=== PATIENT | male | born 1980 | race Caucasian/White ===

== ENCOUNTER 2024-09-15 13:52 | Emergency (ER) | payer SELFPAY ==
[2024-09-15 13:55] VITALS: BP 172/95; PULSE 60; RESP 16; TEMP 36.6; O2SAT 98; BMI 25.1
[2024-09-15 16:29] VITALS: BP 172/95; PULSE 60; RESP 16; TEMP 36.6; O2SAT 98
--- NOTE | 2024-09-15 16:30 | ED.EXTPRO ---
HPI - Extremity Problem General Chief complaint: Extremity Injury, Upper Stated complaint: Finger stiffness no injury Time Seen by Provider: 09/15/24 16:23 Source: patient Mode of arrival: ambulatory Limitations: no limitations History of Present Illness ED Provider: Dr. Kristen Colbert HPI Narrative: Patient comes to the emergency room complaining of being unable to make a full fist with his left hand. According to the patient, about a month ago he noticed that he has difficulty making a full fist and also flexing all the fingers. Patient states that sometimes he sees a cyst on the dorsum of his hand and then goes away. However, today, patient is able to make a full fist, flexing and extending all fingers, and the cyst isn't present. Patient denies any pain. Patient denies any trauma. Related Data Allergies Allergy/AdvReac Type Severity Reaction Status Date / Time No Known Allergies Allergy Verified 09/15/24 13:56 Review of Systems Review of Systems: Constitutional : No Weight loss, No Fever, No Chills, No Night Sweats, No Fatigue, No Malaise ENT/Mouth : No Hearing loss, No Ear Pain, No Nasal Congestion, No Sinus Pain, No Hoarseness, No sore throat, No Rhinorrhea, No Swallowing Difficulty Eyes: No Eye Pain, No Swelling, No Redness, No Foreign Body, No Discharge, No Vision Changes Cardiovascular : No Chest Pain, No SOB, No Dyspnea on Exertion, No Orthopnea, No Edema, No Palpitations Respiratory : No Cough, No Sputum, No Wheezing, No Smoke Exposure, No Dyspnea Gastrointestinal : No Nausea, No Vomiting, No Diarrhea, No Constipation, No abdominal Pain, No Hematochezia, No Melena Genitourinary : no irregular bleeding, No Dysuria, No Urinary Frequency, No Hematuria, No Urinary Incontinence, No Urgency, No Flank Pain, No Urinary Flow Changes, No Hesitancy Musculoskeletal : No joint pain, No Myalgias, No Joint Swelling. Patient complaining of intermittent fluid/cyst buildup in the dorsum of the left hand, and intermittently being unable to flex and extend fingers of the hand. Skin : No Skin Lesions, No rash Neuro : No Weakness, No Numbness, No Paresthesias, No Loss of Consciousness, No Dizziness, No Headache Psych : No Anxiety/Panic, No Depression, No SI/HI/AH/VH, No Social Issues, Heme/Lymph: No Bruising, No Bleeding,No Lymphadenopathy Endocrine : No Polyuria, No Polydipsia, No Temperature Intolerance [facility] Social History Social History Advance Directives: No Advance Directives Information Provided: No Do you have a plan to hurt others: No Plan Physical Exam Vital Signs: Vital Signs: Last Vital Signs Temp 97.9 F 09/15/24 16:29 Pulse 60 09/15/24 16:29 Resp 16 09/15/24 16:29 BP 172/95 H 09/15/24 16:29 Pulse Ox 98 09/15/24 16:29 O2 Del Method Room Air 09/15/24 16:29 BMI result Body Mass Index 25.1 Const: Other: Appearance: Alert. Oriented X3. No acute distress. Eyes: Pupils equal, round and reactive to light. ENT: Pharynx normal. Neck: Normal inspection. Neck supple. No lymph nodes noted. No crepitus CVS: Normal heart rate and rhythm. Pulses normal. Normal S1 and S2 Respiratory: No respiratory distress. Breath sounds normal. No Wheezing. No rales Abdomen: Soft and nontender. No rigidity. No distention. Skin: Skin warm and dry. Normal skin color. Normal skin turgor. Extremities: No lower extremity edema. No Lacerations. No Rash. Patient has normal flexion and extension of all digits of both hands. Normal range of motion at the wrist. There is no cyst/fluid buildup. Patient has normal strength in the right hand, 5/5, 4/5 on the left hand. Neuro: Oriented X 3. No motor deficit. No sensory deficit. Moving all extremities. No slurred speech. CN 2 through 12 grossly intact Psych: calm, cooperative, normal affect Course Course Course Narrative: Patient comes in complaining of having difficulty flexing and extending the fingers of his left hand and also complaining of a cyst pulling up in the dorsum of his hand. Symptoms have been ongoing for over a month. However, patient states that he can not flex and extend his fingers. However, on physical exam he has complete normal range of motion and there is no cyst in the dorsum of the hand. I discussed with the patient that he may be experiencing a nerve entrapment at the wrist. Patient was asked to take ibuprofen p.r.n. pain and also to wear a wrist splint. Eventually, patient may need physical therapy versus steroid injections. At this time, x-rays are not indicated. Eventually, it is possible that patient may need an outpatient MRI. Medical Decision Making Medical Decision Making MDM Narrative: I discussed the physical exam with the patient. Patient has full range of motion with his fingers. Patient states that he is concerned that sometimes his 4th finger is slightly more flex at the PI but still has normal range of motion as the other fingers. Frozen joint was considered. However, the finger itself is not stuck. There is no fluid buildup in any part of the hand. I discussed with the patient that he likely has carpal tunnel syndrome, given the repetitive head movement secondary to his job Discharge Plan Discharge Clinical Impression: Carpal tunnel syndrome Patient Disposition: Home, Self-Care Instructions: Carpal Tunnel Syndrome (DC) Additional Instructions: Please follow-up with your primary care physician tomorrow. If you have any worsening or new symptoms, please return to the emergency room or call 911 Interventions: ED Discharge Assessment Last Done: 09/15/24 16:29 Print Language: [place]
== END 2024-09-15 16:48 | disposition home or self-care (01) ==
PROVIDERS: Emergency Provider Emergency Medicine; PCP Internal Medicine
DX: G56.02 Carpal tunnel syndrome, left upper limb (principal)
CPT/HCPCS: 99282